=== PATIENT | female | born 1965 | race Caucasian/White ===

== ENCOUNTER → 2016-09-04 | Outpatient (CLI) | payer BC | LOC: BMCIMAGING 13:43 | PROVIDERS: ATTEND Family Medicine | DX: R63.4 Abnormal weight loss (principal); R05 Cough ==

== ENCOUNTER → 2017-08-03 | Outpatient (CLI) | payer BC | LOC: FIMAGING 11:01 | PROVIDERS: ATTEND Family Medicine | DX: Z12.31 Encounter for screening mammogram for malignant neoplasm of breast (principal) ==

== ENCOUNTER → 2018-09-12 | Outpatient (CLI) | payer BC | LOC: FIMAGING 15:19 | PROVIDERS: ATTEND Family Medicine | DX: Z12.31 Encounter for screening mammogram for malignant neoplasm of breast (principal); Z79.890 Hormone replacement therapy ==